=== PATIENT | female | born 1965 | race Caucasian/White ===

== ENCOUNTER → 2017-03-13 | Outpatient (CLI) | payer OTHER ==
[~2017-03-13] MED LIST: FENO145T PO; FISH100049 PO; MULT1TAB18 PO; RANI1TAB6 PO; TYLE1TAB5 PO; [UNRECOGNIZED DRUG - CODE] PO
--- NOTE | 2017-03-13 21:27 | REP ---
ABDOMINAL SERIES RADIOGRAPHS: CLINICAL: Sitz marker study. TECHNIQUE: Two supine views of the abdomen and pelvis. FINDINGS: The bowel gas pattern is nonspecific. No residual sitz markers are identified. Evidence for prior cholecystectomy and tubal ligation, however, the left tubal ligature clip is identified in the left mid/upper abdomen and has likely slipped from the fallopian tube. Correlation is required. IMPRESSION: 1. Nonspecific bowel gas pattern. 2. No residual sitz markers. 3. Left tubal ligature clip identified in the left mid/upper abdomen. Signed by Monroe Gipson MD 03/23/2017 11:53 A
== END ==
LOC: M RAD 08:00
PROVIDERS: ATTEND Physician Assistant Medical
DX: R19.7 Diarrhea, unspecified (principal)

== ENCOUNTER → 2017-03-27 | Outpatient (CLI) | payer OTHER ==
[~2017-03-27] VITALS: Ht 170.2 cm; Wt 90.7 kg
[~2017-03-27] MED LIST changes: +LIDOCAINE 2% INJ 100 MG/5 ML SDV (FOR ANES.) As Ordered ONE; +NS 1,000 ML IV ONE; +PROPOFOL 200 MG/20 ML VIAL As Ordered ONE
--- NOTE | 2017-03-27 13:13 | ROOR ---
Patient Name: Cyndie Renner Procedure Date: 03/27/2017 12:57 PM Date of : 1965 Age: 51 Room: [facility] Gender: Female Note Status: Finalized Procedure: Upper GI endoscopy Indications: Heartburn Providers: Joshua DUNBAR MD Referring MD: Dwain Fan MD Requesting Provider: Medicines: Monitored Anesthesia Care Complications: No immediate complications. Procedure: Pre-Anesthesia Assessment: - The heart rate, respiratory rate, oxygen saturations, blood pressure, adequacy of pulmonary ventilation, and response to care were monitored throughout the procedure. The Endoscope was introduced through the mouth, and advanced to the second part of duodenum. The upper GI endoscopy was accomplished without difficulty. The patient tolerated the procedure well. Findings: The esophagus was normal. The stomach was normal. The examined duodenum was normal. Impression: - Normal esophagus. - Normal stomach. - Normal examined duodenum. - No specimens collected. Recommendation: - Continue present medications. - Follow an antireflux regimen. Joshua Dunbar MD Joshua DUNBAR MD 03/27/2017 1:12:45 PM This report has been signed electronically. Number of Addenda: 0 Note Initiated On: 03/27/2017 12:57 PM Estimated Blood Loss: Estimated blood loss: none.
--- NOTE | 2017-03-27 13:28 | ROOR ---
Patient Name: Cyndie Renner Procedure Date: 03/27/2017 12:58 PM Date of : 1965 Age: 51 Room: [facility] Gender: Female Note Status: Finalized Procedure: Colonoscopy Indications: High risk colon cancer surveillance: Personal history of colonic polyps, Last colonoscopy: January 2014, Incidental diarrhea noted Providers: Joshua DUNBAR MD Referring MD: Dwain Fan MD Requesting Provider: Medicines: Monitored Anesthesia Care Complications: No immediate complications. Procedure: Pre-Anesthesia Assessment: - The heart rate, respiratory rate, oxygen saturations, blood pressure, adequacy of pulmonary ventilation, and response to care were monitored throughout the procedure. The Colonoscope was introduced through the anus and advanced to 6 cm into the ileum. The colonoscopy was performed without difficulty. The patient tolerated the procedure well. The quality of the bowel preparation was good. Findings: The perianal and digital rectal examinations were normal. The terminal ileum appeared normal. The entire examined colon appeared normal on direct and retroflexion views. Biopsies for histology were taken with a cold forceps for evaluation of microscopic colitis. Impression: - The examined portion of the ileum was normal. - The entire colon is normal on direct and retroflexion views. - Biopsies were taken with a cold forceps for evaluation of microscopic colitis. Recommendation: - Repeat colonoscopy in 5 years for surveillance based on personal history of previous adenomatous polyps. - Telephone endoscopist for pathology results in 2 weeks. Joshua Dunbar MD Joshua DUNBAR MD 03/27/2017 1:28:06 PM This report has been signed electronically. Number of Addenda: 0 Note Initiated On: 03/27/2017 12:58 PM Estimated Blood Loss: Estimated blood loss: none.
[2017-03-27 13:45] VITALS: BP 125/77
== END | disposition home or self-care (01) ==
LOC: M OPP 11:52
PROVIDERS: ATTEND Internal Medicine Gastroenterology
DX: R19.7 Diarrhea, unspecified (principal); Z86.010 Personal history of colon polyps; R12 Heartburn; E78.5 Hyperlipidemia, unspecified; Z87.891 Personal history of nicotine dependence; Z79.899 Other long term (current) drug therapy; Z80.3 Family history of malignant neoplasm of breast; Z80.8 Family history of malignant neoplasm of other organs or systems

== ENCOUNTER 2019-07-19 09:03 | Day surgery (SDC) | payer OTHER ==
[~2019-07-19] VITALS: Ht 170.2 cm; Wt 96.8 kg
[~2019-07-19 09:03] MED LIST changes: +ACET-897 PO; +DIPH25CA32 PO; -FENO145T PO; +FENO145T7 PO; +FISH1000 PO; -LIDOCAINE 2% INJ 100 MG/5 ML SDV (FOR ANES.) As Ordered ONE; +LORY1TAB2 PO; +NO ITAB PO; -NS 1,000 ML IV ONE; +OMEP40CA97 PO; -PROPOFOL 200 MG/20 ML VIAL As Ordered ONE; +RANI-397 PO; -RANI1TAB6 PO; +VESI5TAB2 PO; -[UNRECOGNIZED DRUG - CODE] PO
[2019-07-19] MEDS ORDERED: NS 1,000 ML IV ONE (10:00)
[2019-07-19] MEDS ORDERED: LIDOCAINE 2% INJ 100 MG/5 ML SDV (FOR ANES.) As Ordered ONE (11:42)
[2019-07-19] MEDS ORDERED: propofoL 200 MG/20 ML VIAL As Ordered ONE ×2 (11:42→11:43)
--- NOTE | 2019-07-19 11:56 | ROOR ---
Patient Name: Cyndie Renner Procedure Date: 07/19/2019 11:38 AM Date of : 1965 Age: 53 Room: [facility] Gender: Female Note Status: Finalized Procedure: Upper GI endoscopy Indications: Dyspepsia, Failure to respond to medical treatment Providers: Joshua DUNBAR MD Referring MD: Dwain Fan MD Requesting Provider: Medicines: Monitored Anesthesia Care Complications: No immediate complications. Procedure: Pre-Anesthesia Assessment: - The heart rate, respiratory rate, oxygen saturations, blood pressure, adequacy of pulmonary ventilation, and response to care were monitored throughout the procedure. The Endoscope was introduced through the mouth, and advanced to the second part of duodenum. The upper GI endoscopy was accomplished without difficulty. The patient tolerated the procedure well. Findings: The esophagus was normal. The stomach was normal. (compliant, large volume) The examined duodenum was normal. Impression: - Normal esophagus. - Normal stomach. - Normal examined duodenum. - No specimens collected. Recommendation: - Follow an antireflux regimen. - Do a gastric emptying study at appointment to be scheduled. - My office will call you in the next few days to set you up for this study/exam. - Return to physician medical office assistant as previously scheduled. Joshua Dunbar MD Joshua DUNBAR MD 07/19/2019 11:55:48 AM Electronically signed by Joshua DUNBAR MD Number of Addenda: 0 Note Initiated On: 07/19/2019 11:38 AM Estimated Blood Loss: Estimated blood loss: none.
[2019-07-19 12:26] VITALS: BP 143/82
== END 2019-07-19 12:26 | disposition home or self-care (01) ==
LOC: M OPP 09:03
PROVIDERS: ATTEND Internal Medicine Gastroenterology
DX: R10.13 Epigastric pain (principal); E78.00 Pure hypercholesterolemia, unspecified; K21.9 Gastro-esophageal reflux disease without esophagitis; Z79.899 Other long term (current) drug therapy; Z80.3 Family history of malignant neoplasm of breast; Z80.8 Family history of malignant neoplasm of other organs or systems

== ENCOUNTER → 2019-08-13 | Outpatient (CLI) | payer OTHER ==
[~2019-08-13] MED LIST changes: +FENO145T13 PO; -FENO145T7 PO; +OMEP40CA2 PO; -OMEP40CA97 PO; +RANI-356 PO; -RANI-397 PO
--- NOTE | 2019-08-13 11:00 | REP ---
NUCLEAR GASTRIC EMPTYING SCAN: Following the oral administration of 1.1 millicuries technetium 99, sulfur colloid in two scrambled eggs and 6 ounces of water, multiple images of the upper abdomen are performed. Gastric activity is measured. At the end of 90 minutes, 45% of the ingested activity has emptied from the stomach, revealing t-1/2 of 99 minutes. This is essentially normal. IMPRESSION: Essentially normal gastric emptying. Electronically Signed by Jules Mittal MD 08/13/2019 03:57 P
== END ==
LOC: M RAD 08:16
PROVIDERS: ATTEND Internal Medicine Gastroenterology
DX: K31.84 Gastroparesis (principal); R10.13 Epigastric pain

== ENCOUNTER → 2019-08-27 | Outpatient (REF) | payer OTHER ==
[2019-08-27 16:35] LABS: HEMOGLOBIN A1c 6.1 %
[2019-08-27 16:42] LABS: FREE T4 0.93 NG/DL (0.76-1.46); THYROID STIMULATING HORMONE 0.647 uIU/ML (0.358-3.740)
== END ==
LOC: M LABDRAW1 15:29
PROVIDERS: ATTEND Physician Assistant Medical
DX: R10.13 Epigastric pain (principal)

== ENCOUNTER → 2020-03-02 | Outpatient (REF) | payer OTHER ==
[~2020-03-02] MED LIST changes: -FENO145T13 PO; +FENO145T7 PO; -OMEP40CA2 PO; +OMEP40CA97 PO; -RANI-356 PO; +RANI-397 PO
[2020-03-02 13:42] LABS: HEMATOCRIT 41.3 % (36.0-47.0); HEMOGLOBIN 14.1 g/dl (12.0-15.5); MEAN CORPUSCULAR HEMOGLOBIN 31.9 pg (27.0-33.0); MEAN CORPUSCULAR HGB CONC 34.1 g/dl (32.0-36.5); MEAN CORPUSCULAR VOLUME 93.4 fl (80.0-96.0); PLATELET COUNT, AUTOMATED 259 10^3/uL (150-450); RED BLOOD COUNT 4.42 10^6/uL (4.00-5.40); WHITE BLOOD COUNT 4.8 10^3/uL (4.0-10.0)
[2020-03-02 13:52] LABS: ALBUMIN 4.2 GM/DL (3.2-5.2); ALT/SGPT 84 U/L (12-78); BILIRUBIN,DIRECT < 0.1 MG/DL (0.0-0.2); BILIRUBIN,TOTAL 0.7 MG/DL (0.2-1.0); IRON (FE) 95 UG/DL (50-170); PERCENT SATURATION 25.3 % (13.2-45.0); TOTAL IRON BINDING CAPACITY 375 UG/DL (250-450); TOTAL PROTEIN 7.3 GM/DL (6.4-8.2)
[2020-03-02 14:00] LABS: INR 1.07; PROTHROMBIN TIME 13.6 SECONDS (11.8-14.0)
[2020-03-02 14:04] LABS: HEPATITIS B SURFACE ANTIGEN NEGATIVE (NEGATIVE)
[2020-03-02 14:30] LABS: HEPATITIS C VIRUS ABY INDEX 0.1 INDEX (<0.8)
[2020-03-02 14:31] LABS: HEPATITIS B CORE ANTIBODY IGM NEGATIVE (NEGATIVE)
[2020-03-02 14:33] LABS: HEPATITIS A ANTIBODY IGM NEGATIVE (NEGATIVE)
== END ==
LOC: M LABDRAW1 13:22
PROVIDERS: ATTEND Physician Assistant Medical
DX: R94.5 Abnormal results of liver function studies (principal)

== ENCOUNTER → 2020-09-11 | Outpatient (REF) | payer OTHER ==
[2020-09-11 17:00] LABS: C REACTIVE PROTEIN QUANTITATIV 0.42 MG/DL (0.00-0.30)
[2020-09-14 16:08] LABS: ANTI DOUBLE STRAND-DNA AB 15 IU/mL (0-9); ANTINUCLEAR ANTIBODIES DIRECT Positive (Negative); LDL DIRECT 61 mg/dL (0-99); RNP ANTIBODIES <0.2 AI (0.0-0.9); SJOGREN'S ANTI SS-A <0.2 AI (0.0-0.9); SJOGREN'S ANTI SS-B <0.2 AI (0.0-0.9); SMITH ANTIBODIES <0.2 AI (0.0-0.9)
== END ==
LOC: M LAB REF 16:22
PROVIDERS: ATTEND Family Medicine
DX: M25.50 Pain in unspecified joint (principal); E78.2 Mixed hyperlipidemia

== ENCOUNTER → 2021-03-29 | Outpatient (CLI) | payer OTHER ==
[~2021-03-29] MED LIST changes: +PROHANCE 279.3MG/ML 15ML VIAL As Ordered ONE; +PROHANCE 279.3MG/ML 5ML VIAL As Ordered ONE
--- NOTE | 2021-03-29 16:23 | REP ---
INDICATION: Z91.89 HIGH RISK. COMPARISON: None. TECHNIQUE: Three [place] MRI imaging was performed with a dedicated breast coil. Axial, coronal, and sagittal T1 and T2 weighted scans were obtained with and without fat saturation in the usual fashion. Unfortunately the patient was not able to tolerate the entire diagnostic protocol and postcontrast imaging was not obtained. FINDINGS: There is mild scattered fibroglandular tissue seen bilaterally. No axillary adenopathy is seen. No significant cystic change is seen. There is no definite focal mass identified in either breast. IMPRESSION: BI-RADS category 0, incomplete. Pre contrast imaging of the breasts demonstrates no definite cystic or solid nodule. However, in order to completely evaluate for underlying breast carcinoma, postcontrast imaging is required. Recommend the patient return for postcontrast MR imaging if she is able. <Electronically signed by Jules Mittal > 03/29/21 [id number]
== END ==
LOC: M RAD 15:05
PROVIDERS: ATTEND Obstetrics & Gynecology
DX: Z91.89 Other specified personal risk factors, not elsewhere classified (principal); R92.8 Other abnormal and inconclusive findings on diagnostic imaging of breast
CPT/HCPCS: A9576; C8908

== ENCOUNTER → 2021-06-25 | Outpatient (REF) | payer OTHER ==
[~2021-06-25] MED LIST changes: +OMEP40CA4 PO; -OMEP40CA97 PO; -PROHANCE 279.3MG/ML 15ML VIAL As Ordered ONE; -PROHANCE 279.3MG/ML 5ML VIAL As Ordered ONE
[2021-06-25 12:17] LABS: APPEARANCE, URINE CLEAR (CLEAR); BACTERIA, URINE AUTO NEGATIVE (NEGATIVE); BILIRUBIN, URINE AUTO NEGATIVE (NEGATIVE); BLOOD, URINE BLOOD NEGATIVE (NEGATIVE); COLOR, URINE YELLOW (YELLOW); GLUCOSE, URINE (UA) AUTO NEGATIVE (NEGATIVE); KETONE, URINE AUTO NEGATIVE (NEGATIVE); LEUKOCYTE ESTERASE, URINE AUTO NEGATIVE (NEGATIVE); NITRITE, URINE AUTO NEGATIVE (NEGATIVE); PROTEIN, URINE AUTO NEGATIVE (NEGATIVE); RBC, URINE AUTO 0 /HPF (0-3); SPECIFIC GRAVITY URINE AUTO 1.008 (1.002-1.035); SQUAMOUS EPITHELIAL CELL UR AU 0 /HPF (0-6); UROBILINOGEN, URINE AUTO 0.2 mg/dL (0.0-2.0); WBC, URINE AUTO 1 /HPF (0-3)
[2021-06-25 12:33] LABS: BASO # 0.1 10^3/uL (0.0-0.2); BASO % 1.1 % (0.0-1.0); EOS # 0.1 10^3/uL (0.0-0.5); EOS % 1.6 % (0.0-3.0); HEMATOCRIT 44.7 % (36.0-47.0); HEMOGLOBIN 14.7 g/dl (12.0-15.5); LYMPH # 1.9 10^3/uL (1.5-5.0); LYMPH % 42.6 % (24.0-44.0); MEAN CORPUSCULAR HEMOGLOBIN 31.5 pg (27.0-33.0); MEAN CORPUSCULAR HGB CONC 32.9 g/dl (32.0-36.5); MEAN CORPUSCULAR VOLUME 95.7 fl (80.0-96.0); MONO # 0.3 10^3/uL (0.0-0.8); MONO % 7.5 % (2.0-8.0); NEUTROPHILS # 2.1 10^3/uL (1.5-8.5); NEUTROPHILS % 46.8 % (36.0-66.0); PLATELET COUNT, AUTOMATED 312 10^3/uL (150-450); RED BLOOD COUNT 4.67 10^6/uL (4.00-5.40); WHITE BLOOD COUNT 4.5 10^3/uL (4.0-10.0)
[2021-06-25 12:55] LABS: TOTAL PROTEIN,RANDOM URINE < 5.0 MG/DL (0.0-12.0)
[2021-06-25 12:58] LABS: ALBUMIN 4.5 GM/DL (3.2-5.2); ALT/SGPT 85 U/L (12-78); BILIRUBIN,TOTAL 0.4 MG/DL (0.2-1.0); BLOOD UREA NITROGEN 13 MG/DL (7-18); C REACTIVE PROTEIN QUANTITATIV 0.43 MG/DL (0.00-0.30); CALCIUM LEVEL 9.7 MG/DL (8.5-10.1); CARBON DIOXIDE LEVEL 28 MEQ/L (21-32); CHLORIDE LEVEL 106 MEQ/L (98-107); COMPLEMENT C3 162 MG/DL (90-180); COMPLEMENT C4 19 MG/DL (10-40); CREATININE FOR GFR 0.64 MG/DL (0.55-1.30); GLOMERULAR FILTRATION RATE > 60.0 (>51); GLUCOSE, FASTING 86 MG/DL (70-100); POTASSIUM SERUM 4.3 MEQ/L (3.5-5.1); SODIUM LEVEL 140 MEQ/L (136-145); TOTAL PROTEIN 7.7 GM/DL (6.4-8.2)
[2021-06-25 13:16] LABS: ERYTHROCYTE SEDIMENTATION RATE 8 mm/hr (0-30)
== END ==
LOC: M SFHCRHEU 08:02
PROVIDERS: ATTEND Internal Medicine Rheumatology
DX: R76.8 Other specified abnormal immunological findings in serum (principal)

== ENCOUNTER → 2022-04-27 | Outpatient (CLI) | payer OTHER ==
[~2022-04-27] MED LIST changes: +ACET-1349 PO; +SENN18TA PO
== END ==
LOC: M LABSMTC 10:44
PROVIDERS: ATTEND Anesthesiology
DX: Z01.812 Encounter for preprocedural laboratory examination (principal); Z20.822 Contact with and (suspected) exposure to COVID-19

== ENCOUNTER 2022-04-28 10:55 | Day surgery (SDC) | payer OTHER ==
[~2022-04-28] VITALS: Ht 170.2 cm; Wt 101.6 kg
[~2022-04-28 10:55] MED LIST changes: +LIDOCAINE 1% SDV 5ML VIAL As Ordered ONE; +MAXITROL OPHTH SUSP 5 ML As Ordered ONE; +NS 1,000 ML IV ONE; +propofoL 500 MG/50 ML VIAL As Ordered ONE
[2022-04-28] MEDS ORDERED: fentaNYL 100 MCG/2 ML INJECTION As Ordered ONE (11:30)
[2022-04-28] MEDS ORDERED: LIDOCAINE 2% 100MG/5ML SDV (FOR ANES.) As Ordered ONE (12:50)
[2022-04-28 13:35] VITALS: BP 126/80
== END 2022-04-28 13:45 | disposition home or self-care (01) ==
LOC: M OPP 10:55
PROVIDERS: ATTEND Internal Medicine Gastroenterology
DX: Z86.010 Personal history of colon polyps (principal); D12.3 Benign neoplasm of transverse colon; Q43.8 Other specified congenital malformations of intestine; K31.7 Polyp of stomach and duodenum; R12 Heartburn; R07.89 Other chest pain; Z79.1 Long term (current) use of non-steroidal anti-inflammatories (NSAID)
CPT/HCPCS: 43251; 45385; 88305; J3010

== ENCOUNTER → 2022-08-29 | Outpatient (REF) | payer OTHER ==
[~2022-08-29] MED LIST changes: -LIDOCAINE 1% SDV 5ML VIAL As Ordered ONE; -MAXITROL OPHTH SUSP 5 ML As Ordered ONE; -NS 1,000 ML IV ONE; -propofoL 500 MG/50 ML VIAL As Ordered ONE
[2022-08-31 15:08] LABS: ANTI DOUBLE STRAND-DNA AB 14 IU/mL (0-9); ANTINUCLEAR ANTIBODIES DIRECT Positive (Negative); RNP ANTIBODIES <0.2 AI (0.0-0.9); SJOGREN'S ANTI SS-A <0.2 AI (0.0-0.9); SJOGREN'S ANTI SS-B <0.2 AI (0.0-0.9); SMITH ANTIBODIES <0.2 AI (0.0-0.9)
== END ==
LOC: M LAB REF 16:14
PROVIDERS: ATTEND Family Medicine
DX: M25.50 Pain in unspecified joint (principal); M25.562 Pain in left knee

== ENCOUNTER → 2025-08-12 | Outpatient (REF) | payer OTHER ==
[~2025-08-12] MED LIST changes: +DIPH-435 PO; -DIPH25CA32 PO; +SENN-165 PO; -SENN18TA PO
[2025-08-12 13:48] LABS: ALT/SGPT 94 U/L (7.0-40); AST/SGOT 67 U/L (<34); CALCIUM LEVEL 9.5 MG/DL (8.5-10.1); CARBON DIOXIDE LEVEL 29 MMOL/L (20-31); CHLORIDE LEVEL 105 MMOL/L (98-107); CHOLESTEROL LEVEL 154 MG/DL (<200); CHOLESTEROL RISK RATIO 3.82 (<5); CREATININE FOR GFR 0.59 MG/DL (0.55-1.30); GLOMERULAR FILTRATION RATE > 90.0 (>51); LDL CHOLESTEROL 57.9 MG/DL (<100); NON-HDL-C 113.7 MG/DL; POTASSIUM SERUM 4.5 MMOL/L (3.5-5.1); SODIUM LEVEL 141 MMOL/L (136-145); TRIGLYCERIDES LEVEL 279 MG/DL (<150)
[2025-08-12 15:42] LABS: ESTIMATED AVERAGE GLUCOSE 143.0 MG/DL (60-110)
== END ==
LOC: M SFHCCLAY 09:05
PROVIDERS: ATTEND Nurse Practitioner Family
DX: R73.03 Prediabetes (principal); R07.89 Other chest pain; K21.9 Gastro-esophageal reflux disease without esophagitis; E78.2 Mixed hyperlipidemia; Z98.890 Other specified postprocedural states